=== PATIENT | male | born 1980 ===

== ENCOUNTER 2017-09-24 11:29 | Outpatient (CLI) | payer OTHER ==
[~2017-09-24] VITALS: Ht 172.7 cm; Wt 70.3 kg
== END 2017-09-24 11:45 | disposition home or self-care (01) ==
LOC: OFIC 805 11:29
DX: H61.23 Impacted cerumen, bilateral (principal); H92.01 Otalgia, right ear; H90.3 Sensorineural hearing loss, bilateral

== ENCOUNTER 2019-04-26 22:21 | Emergency (ER) | payer OTHER ==
[~2019-04-26] VITALS: Ht 172.7 cm; Wt 72.6 kg
== END 2019-04-27 01:29 | disposition home or self-care (01) ==
LOC: ER 22:21
DX: S82.892A Other fracture of left lower leg, initial encounter for closed fracture (principal); V00.131A Fall from skateboard, initial encounter; Y93.02 Activity, running; Y92.413 State road as the place of occurrence of the external cause; Y99.8 Other external cause status